=== PATIENT | female | born 1945 | race Caucasian/White ===

== ENCOUNTER 2017-02-22 23:57 | Emergency (ER) | payer OTHER ==
[~2017-02-22] VITALS: Ht 165.1 cm; Wt 108.9 kg
[2017-02-23 00:06] VITALS: BP_SYST 165
[2017-02-23] MEDS ORDERED: KETOROLAC TROMETHAMINE 30 MG VIAL IVP ONE (02:00)
[2017-02-23 02:14] LABS: BASOPHILS # (AUTO) 0.3 K/uL (0.0-0.2); BASOPHILS % (AUTO) 2.3 % (0.0-2.0); EOSINOPHILS # (AUTO) 0.3 K/uL (0.0-0.4); EOSINOPHILS % (AUTO) 2.3 % (0.0-4.0); HEMATOCRIT 44.6 % (36-48); HEMOGLOBIN 14.7 g/dL (12.0-16.0); LYMPHOCYTES # (AUTO) 2.1 K/uL (1.0-5.5); LYMPHOCYTES % (AUTO) 17.8 % (20.5-51.5); MEAN CORPUSCULAR HEMOGLOBIN 30 pg (27-31); MEAN CORPUSCULAR HGB CONC 33 % (32-36); MEAN CORPUSCULAR VOLUME 92 fL (79.0-98.0); MONOCYTES # (AUTO) 1.1 K/uL (0.0-1.0); MONOCYTES % (AUTO) 9.1 % (1.7-9.3); NEUTROPHILS # (AUTO) 7.8 K/uL (1.8-7.7); NEUTROPHILS % (AUTO) 68.5 % (40.0-70.0); PLATELET COUNT (AUTO) 220 K/uL (130-430); RED BLOOD CELL COUNT(AUTO) 4.85 MIL/uL (4.2-6.2); RED CELL DISTRIBUTION WIDTH 14.1 % (9.0-15.0); WHITE BLOOD COUNT (AUTO) 11.6 K/uL (4.8-10.8)
[2017-02-23 02:19] LABS: ANION GAP 8 (5-15); CALCIUM 8.7 mg/dL (8.4-11.0); CHLORIDE 104 mmol/L (98-107); CREATININE 1.35 mg/dL (0.55-1.30); GLUCOSE 113 mg/dL (70-99); POTASSIUM 4.1 mmol/L (3.5-5.1); SODIUM SERUM 140 mmol/L (136-145); UREA NITROGEN, BLOOD 27 mg/dL (8-21)
[2017-02-23 02:24] LABS: ALANINE AMINOTRANSFERASE 22 U/L (12-78); ASPARTATE AMINOTRANSFERASE 18 U/L (10-37); LIPASE 164 U/L (73-393); TOTAL BILIRUBIN 0.4 mg/dL (0.0-1.0); TOTAL PROTEIN, SERUM 8.1 g/dL (6.4-8.3)
[2017-02-23] MEDS ORDERED: cloNIDine HCL 0.1 MG TABLET PO ONE ×3 (02:30→04:45)
[2017-02-23 02:36] LABS: BILIRUBIN,URINE NEGATIVE (NEGATIVE); BLOOD, URINE NEGATIVE (NEGATIVE); CLARITY/URINE CLEAR (CLEAR); COLOR,URINE YELLOW (YELLOW); GLUCOSE,URINE NEGATIVE (NEGATIVE); KETONES,URINE NEGATIVE (NEGATIVE); LEUKOCYTE ESTERASE ,URINE NEGATIVE (NEGATIVE); NITRITE, URINE NEGATIVE (NEGATIVE); PH,URINE 5.5 (5.0-8.0); PROTEIN URINE NEGATIVE (NEGATIVE); UROBILINOGEN,URINE 0.2 (0.2-1.0)
[2017-02-23 02:44] LABS: AMYLASE 2388 U/L (0-100)
[2017-02-23] MEDS ORDERED: GABA-531 PO (03:19)
[2017-02-23] MEDS ORDERED: CAT.1 PO (03:19)
[2017-02-23] MEDS ORDERED: CEPH-568 PO (03:19)
[2017-02-23] MEDS ORDERED: LABE100T PO (03:19)
[2017-02-23] MEDS ORDERED: IRBE300T40 PO (03:19)
[2017-02-23] MEDS ORDERED: CALC0.258 PO (03:19)
[2017-02-23] MEDS ORDERED: CALC-226 PO (03:19)
[2017-02-23] MEDS ORDERED: IBUP100T8 PO (03:19)
[2017-02-23] MEDS ORDERED: LEVO100T PO (03:19)
[2017-02-23] MEDS ORDERED: IOHEXOL 100 ML IV ONE (04:08)
[2017-02-23] MEDS ORDERED: cloNIDine HCL 0.1 MG TABLET ONE (04:34)
[2017-02-23 05:15] VITALS: BP_SYST 185
== END 2017-02-23 05:15 | disposition home or self-care (01) ==
LOC: SED 23:57
DX: K11.20 Sialoadenitis, unspecified (principal); R59.9 Enlarged lymph nodes, unspecified; I10 Essential (primary) hypertension; R74.8 Abnormal levels of other serum enzymes; R21 Rash and other nonspecific skin eruption; E11.9 Type 2 diabetes mellitus without complications; Z79.899 Other long term (current) drug therapy
CPT/HCPCS: 36415; 70491; 80053; 81003; 82150; 83690; 85025; 96374; 99285; J1885; Q9967